=== PATIENT | male | born 1960 | race Caucasian/White ===

== ENCOUNTER 2017-07-01 16:11 | Inpatient (IN) | payer MEDICAID, SELFPAY ==
[2017-07-01 15:42] VITALS: BMI 43.9
[2017-07-01 16:02] VITALS: PULSE 90
[2017-07-01 16:08] VITALS: BP 126/74; PULSE 76; RESP 18; TEMP 36.6; O2SAT 96
--- NOTE | 2017-07-01 16:12 | MRI_ITS ---
MR Brain W/O Contrast INDICATION: Right sided weakness, near syncope COMPARISON: None TECHNIQUE: Multiplanar multisequence MRI examination of the brain without contrast FINDINGS: There is focal cortical restricted diffusion in the left posterior lateral parietal region and left parasagittal high convexity compatible with small areas of acute infarction. Underlying periventricular chronic ischemic microvascular white matter changes are minimal. There is no evidence of associated hemorrhage, or mass effect. There is no evidence of abnormal extra-axial collection or midline shift. The ventricular system is normal in size and symmetric. Midline structures and craniocervical junction are unremarkable. Mesial temporal lobes are normal and symmetric. Flow-voids of the [place] vascularity are well seen. There is partial opacification of the paranasal sinuses. Mastoid air cells are clear. MRI/Brain without Contrast IMPRESSION: Tiny foci of acute infarction in the left posterior parietal and left high convexity cortex. No evidence of associated hemorrhage or mass effect. Underlying chronic ischemic microvascular white matter changes are minimal. Paranasal sinus disease. at 2013 Reported and signed by: Helen Kendall MD N.B. : The above information has been verbally conveyed by Helen Kendall MD [facility] on 07/01/2017 20:20:40 (ET). Electronically Signed: Helen Kendall MD at 20:12 EDT Tel , Service support , N.B. : The above information has been verbally conveyed by Helen Kendall MD to BEVERLY EL on 07/01/2017 20:20:40 (ET).
--- NOTE | 2017-07-01 16:12 | CDU_ITS ---
Reason For Study: TIA Rt. Velocities/BP Lt. Velocities/BP Prox CCA 83/18 cm/sec. Prox CCA 124/26 cm/sec. Mid CCA 85/16 cm/sec. Mid CCA 124/32 cm/sec. Dist CCA 92/23 cm/sec. Dist CCA 120/31 cm/sec. Prox ICA 110/31 cm/sec. Prox ICA 68/26 cm/sec. Mid ICA 74/26 cm/sec. Mid ICA 84/34 cm/sec. Dist ICA 77/30 cm/sec. Dist ICA 83/36 cm/sec. Rt. ICA/CCA = 1.29. Lt. ICA/CCA = 0.67. Prox ECA 131/17 cm/sec. Prox ECA 118/22 cm/sec. Rt. Vert. 44/12 cm/sec. Lt. Vert. 48/11 cm/sec. Right Extracranial There is heterogeneous, irregular atherosclerotic plaque noted in the right common carotid artery. There is intimal thickening but no significant atherosclerotic plaque noted in the right internal carotid artery. There is intimal thickening but no significant atherosclerotic plaque noted in the right external carotid artery. Antegrade flow is noted in the right vertebral artery. Left Extracranial There is homogeneous, smooth atherosclerotic plaque noted in the left common carotid artery. There is intimal thickening but no significant atherosclerotic plaque noted in the left internal carotid artery. There is no significant atherosclerotic plaque noted in the left external carotid artery. Antegrade flow is noted in the left vertebral artery. Procedure Carotid Duplex [id number]. Exam performed portable in patient room. Interpretation Summary No hemodynamically significant plague or stenosis bilateral extracranial internal carotids with <50% stenosis bilaterally. Normal flow bilateral external carotids. Patent and antegrade vertebrals bilaterally. Ordering Physician: Ky Hill Referring Physician: Ky Hill Performed By: Kimberly Lewis, JENN, RVT
--- NOTE | 2017-07-01 16:17 | ECHOCS_ITS ---
Reason For Study: TIA/STROKE Procedure This was a 2D Doppler, Color Flow transthoracic echocardiogram. Exam performed portable in patient room. Left Ventricle Normal size and thickness. The estimated ejection fraction is 65 %. Normal diastology for age. No regional wall motion abnormalities noted. Right Ventricle Normal size and thickness. Normal systolic function. Atria The left atrium is mildly enlarged. Normal right atrium. Normal atrial septum. Bubble contrast study negative for right to left interatrial shunt. Mitral Valve The mitral valve is structurally normal. No prolapse or stenosis seen. Tricuspid Valve Normal tricuspid valve. Trivial tricuspid valve insufficiency. Right ventricular systolic pressure estimated to be 31 mmHg. Aortic Valve Trisinus/trileaflet aortic valve. Normal aortic valve. Pulmonic Valve Normal pulmonic valve. Great Vessels Normal aortic root. Normal arch. Normal inferior vena cava. Inferior vena cava collapse with sniff. Pericardium/Pleural No pericardial effusion. Medication Diluted definity 2ml given slow IV push to enhance endocardial definition. Performed a rapid injection of agitated mix of 9 cc saline and 1cc air to assess for atrial septal defect. MMode/2D Measurements & Calculations LVIDd: 3.5 cm IVSd: 0.97 cm Ao root diam: 3.2 cm LVIDs: 2.5 cm LVPWd: 1.1 cm FS: 28.1 % LAV(MOD-bp): 60.7 ml LA A4 area: 21.4 cm2 RA A4 area: 17.1 cm2 LAV(MOD-bp) Indexed: 24.3 ml/m2 LAV(MOD-sp2): 58.2 ml LAV(MOD-sp4): 59.8 ml Time Measurements MV dec time: 0.20 sec Doppler Measurements & Calculations MV A max elfego: 78.0 cm/sec Lat Peak E' Elfego: 12.3 cm/sec Med Peak E' Elfego: 15.1 cm/sec Ao V2 max: 96.9 cm/sec LV V1 max: 76.2 cm/sec PA V2 max: 107.7 cm/sec Ao max P.8 mmHg LV V1 max P.3 mmHg TR max elfego: 255.3 cm/sec TR max P.1 mmHg Interpretation Summary The estimated ejection fraction is 65 %. Normal diastology for age. The left atrium is mildly enlarged. Bubble contrast study negative for right to left interatrial shunt. Trivial tricuspid valve insufficiency. Right ventricular systolic pressure estimated to be 31 mmHg. The study was technically difficult. There is no comparison study available. Contrast injection was performed. Ordering Physician: Ky Hill Referring Physician: Ky Hill Performed By: Stephanie Doherty RDCS
--- NOTE | 2017-07-01 16:18 | PCM.HP.STD ---
Problem List (1) Asthma Status: Chronic (2) Essential hypertension Status: Chronic History of Present Illness Date of Admission: 07/01/17 Chief Complaint: Syncope, right upper extremity numbness and slurred speech The patient is a 57 year old man with past medical history of essential hypertension and controlled bronchial asthma who presented to the emergency room at [place] complaining of a syncopal episode as well as right upper extremity paresthesias and slurred speech. Yesterday he had an episode where he almost passed out and at the same time he experienced numbness and tingling of the right upper extremity, he also had slurred speech. His symptoms resolved and he did not seek any medical attention. Today he was standing up and reaching out to get a pen when his right upper extremity became numb and weak with tingling , he completely passed out. His significant other who is at bedside reported that the patient was out for a few seconds but regained consciousness immediately. At the outlying emergency room , a non contrast CT scan of the brain did not reveal any acute process, he was transferred here for further management.When I saw him on the floor , he was alert and oriented to time place and person , he did not appear to be in any distress. He denied any focal deficit. Past Medical History Past Medical History (Chronic Problems): Chronic Problems Asthma (Chronic) Essential hypertension (Chronic) Allergies Iodinated Contrast- Oral and IV Dye [CONTRASTS] Adverse Reaction (Verified 07/01/17 15:53) Other Home Medications: Ambulatory Orders Medication Instructions Recorded Hydrochlorothiazide [Hctz] 25 mg PO DAILY 07/01/17 Meloxicam 15 mg PO DAILY PRN 07/01/17 Mometasone/Formoterol [Dulera 200 13 gm IH DAILY 07/01/17 Mcg/5 Mcg Inhaler] Smoking Status: Former smoker Tobacco Use: Cigarettes - *Family History Maternal History Items: No pertinent history Review of Systems Comment: All Systems were reviewed with pertinent positives mentioned in the HPI above. VTE Information - Inpt Only VTE Present on Admission: Yes VTE Mechan Device Prophylaxis: SCD's VTE Pharm Prophylaxis ordered?: No - Physical Exam General: Alert, Oriented x3 HEENT: Atraumatic Oral: Moist Mucosa Neck: Supple Lungs: Clear to auscultation Cardiovascular: Regular rate, Normal S1, Normal S2 Abdomen: Bowel Sounds Present, Soft Extremities: No clubbing Neurological: Cranial nerves II-XII grossly intact, Deep Tendon Reflexes 2+/4 and Symmetrical, Neuro grossly intact, Motor Exam 5/5 strength throughout Psych/Mental Status: Normal Affect Vital Signs Temp Pulse Resp BP Pulse Ox 97.9 F 76 18 126/74 H 96 07/01/17 16:08 07/01/17 16:08 07/01/17 16:08 07/01/17 16:08 07/01/17 16:08 Oxygen Delivery Method Room Air Weight: 139 kg Body Mass Index (BMI) 43.9 Assessment/Plan 1. Transient ischemic attack; will obtain MRI of the brain, carotid Doppler ultrasound echocardiogram and continue cardiac rhythm monitoring. 2. Status post syncope; obtain serial cardiac enzymes, will obtain echocardiogram to rule out structural heart disease. 3. Essential hypertension; this is controlled. 4. history of Bronchial asthma with no acute exacerbation; continue home medications as they are. 5. Obesity; weight loss recommended. 6. DVT Prophylaxis with Lovenox. Code Visit OBSV E&M: 06093 Initial observation care L3
[2017-07-01 17:21] VITALS: BMI 43.9
[2017-07-01 18:22] LABS: Thyroid Stim Hormone (TSH) 1.11 uIU/mL (0.358-3.74)
[2017-07-01 19:53] VITALS: PULSE 85
[2017-07-01 19:59] VITALS: BP 115/73; PULSE 82; RESP 16; TEMP 36.9; O2SAT 96
[2017-07-01 23:33] VITALS: PULSE 71
[2017-07-02] VITALS (15 sets, daily range): BP systolic 102–142; BP diastolic 61–87; PULSE 67–93; RESP 16–18; TEMP 36.4–37.1; O2SAT 95–98; BMI 43.9
[2017-07-02 06:36] LABS: Hematocrit 41.4 % (40-54); Hemoglobin 13.5 g/dl (13.0-16.5); Mean Corp Hgb Conc 32.6 g/gl (32-36); Mean Corpuscular Hgb 29.9 pg (27.0-32.0); Mean Corpuscular Volume 91.6 fL (80-94); Platelet Count 322 K/mm3 (150-450); RBC Distribution Width CV 13.6 % (11.6-14.6); RBC Distribution Width SD 44.8 fl (35.1-43.9); Red Blood Count 4.52 M/mm3 (4.6-6.2); White Blood Count 9.9 K/mm3 (4.4-11.0)
[2017-07-02 06:41] LABS: Scan Indicated on CBC? Y/N NO
[2017-07-02 06:59] LABS: Anion Gap 7 (5-15); BUN 13 mg/dL (7-18); BUN/Creat Ratio 12.4 RATIO (10-20); Calcium,Total 8.2 mg/dL (8.5-10.1); Chloride 107 mmol/L (98-107); Cholesterol 165 mg/dL (200); Creatinine, Serum 1.05 mg/dL (0.70-1.30); EST Glomerular Filtration Rate 78 mL/min (>60); Est Glom Filt Rate - Afr Amer 94 mL/min (>60); Estimated Creatinine Clearance 82.08 ml/min; Glucose 91 mg/dL (74-106); High Density Lipoprotein 34 mg/dL; Potassium 4.3 mmol/L (3.5-5.1); Sodium Level 141 mmol/L (136-145); Triglycerides 173 mg/dL; Very Low Density Lipoprotein 35 mg/dL (5-40)
[2017-07-02] MEDS: Enoxaparin 40 MG/0.4 ML Syringe SC (10:27)
[2017-07-02] MEDS: Atorvastatin Calcium 80 MG Tablet PO (10:28)
[2017-07-02] MEDS: Aspirin 81 MG TAB.CHEW PO (10:28)
--- NOTE | 2017-07-02 10:35 | CASEMGMT ---
SW spoke with patient and his . Introduced self as well as role at [facility]. Patient is self pay. 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 He was injured at work and is currently on Worker's Comp for his injury. He gets $1234.16 twice a month. They cannot afford insurance through the marketplace. He is able to see his Primary Care Dr. He is on a few medications, two of which are inhalers which are expensive. SW told them SW will look for some resources for him. [facility] did find prescription assistance programs for the inhalers that patient will likely qualify for. Patient will likely not qualify for Medicaid, but SW will give him an application. SW gave patient application for assistance with his meds, Medicaid application, and [facility] HCAP form as well as Patient Financial Services phone number regarding payment plan. Elvira MURPHY MSW
--- NOTE | 2017-07-02 12:07 | CASEMGMT ---
CHART REVIEW ADM DX: CVA/TIA MRI IMPRESSION: TINY FOCI OF ACUTE INFARCTION IN THE LEFT POSTERIOR PARIETAL AND LEFT HIGH CONVEXITY CORTEX. ASSESSMENT: Per physician report, the patient is a 57 year old man with past medical history of essential hypertension and controlled bronchial asthma who presented to the emergency room at [place] complaining of a syncopal episode as well as right upper extremity paresthesias and slurred speech. Yesterday he had an episode where he almost passed out and at the same time he experienced numbness and tingling of the right upper extremity, he also had slurred speech. His symptoms resolved and he did not seek any medical attention. Today he was standing up and reaching out to get a pen when his right upper extremity became numb and weak with tingling , he completely passed out. His significant other who is at bedside reported that the patient was out for a few seconds but regained consciousness immediately. At the outlying emergency room , a non contrast CT scan of the brain did not reveal any acute process, he was transferred here for further management. TREATMENT PLAN: MRI, Carotid doppler, ECHO, NIH and neuro checks q 4 hours, and continued cardiac monitoring. TRANSITION CARE/PLANNING: Pt with no deficits at this time. Pt is currently on workers comp for injury sustained in 11/2016. Pt is independent at home and lives with . Pt does not live around here and does have a PCP near his home. Pt states does not currently have medical insurance. Pt already seen by Maureen BRIDGES for self-pay status and she is working on prescription assistance with pt. CM to follow for any further discharge planning/needs. PLAN: [place]
--- NOTE | 2017-07-02 13:57 | PCM.CONS.GEN ---
Reason for Consult Date of Consultation: 07/02/17 Reason for Consultation: Right sided paresthesias History of Present Illness: The patient is a 57 year old white male who experienced an episode of right hand paresthesias that went away. Subsequently yesterday he had an episode of right-sided weakness and paresthesias associated with loss of consciousness. He was brought to the emergency department and he is significantly improved but he notes still some subtle abnormalities on his right side. No other complaints. No recent illnesses. He is healthy otherwise. His reports he is a light snore. 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 He had a remote sleep study about 20 years ago which was negative. He does not take aspirin every day. Past Medical History Past Medical History (Chronic Problems): Chronic Problems Asthma (Chronic) Essential hypertension (Chronic) Allergies Iodinated Contrast- Oral and IV Dye [CONTRASTS] Adverse Reaction (Verified 07/01/17 15:53) Other Home Medications: Ambulatory Orders Medication Instructions Recorded Hydrochlorothiazide [Hctz] 25 mg PO DAILY 07/01/17 Meloxicam 15 mg PO DAILY PRN 07/01/17 Mometasone/Formoterol [Dulera 200 13 gm IH DAILY 07/01/17 Mcg/5 Mcg Inhaler] Lives: Spouse/ Significant Other Smoking Status: Former smoker Tobacco Use: Cigarettes - *Family History Maternal History Items: No pertinent history Review of Systems Constitutional: Denies: Chills, Fever, Weight Change HEENT: Denies: Head Aches, Sinus Congestion, Sinus Drainage Cardiovascular: Denies: Chest Pain, Palpitations Respiratory: Denies: Cough, Shortness of breath at rest, Sputum production Gastrointestinal: Denies: Abdominal Pain, Nausea, Vomiting Genitourinary: Denies: Dysuria Musculoskeletal: Denies: Joint Pain, Joint Tenderness Skin: Denies: Rash, Wounds Neurological: Denies: Numbness, Tingling, Focal weakness Psychiatric: Denies: Anxiety, Depression, Homicidal Ideations, Suicidal Ideations Hematologic/ Lymphatic: Denies: Easy Bruising, Easy Bleeding - Physical Exam General: Alert, Oriented x3, Cooperative HEENT: Atraumatic, PERRLA, EOMI, Normocephalic Neck: Supple, No JVD, Negative Carotid Bruits Lungs: Clear to auscultation, Normal air movement Cardiovascular: Regular rate, No murmurs Abdomen: Bowel Sounds Present, Soft, Non Tender Extremities: No edema, Capillary Refill Less than 3 Seconds Skin: No rashes, No breakdown Musculoskeletal: No Tenderness to Palpation of Joints or Extremities Neurological: Cranial nerves II-XII grossly intact Psych/Mental Status: Normal Affect, Appropriate Vital Signs Temp Pulse Resp BP Pulse Ox 36.6 C 89 18 127/78 H 97 07/02/17 12:00 07/02/17 12:05 07/02/17 12:00 07/02/17 12:00 07/02/17 12:00 Oxygen Delivery Method Room Air Weight: 139 kg Body Mass Index (BMI) 43.9 Intake and Output for Last 24 Hours 06/30/17 07/01/17 07/02/17 23:59 23:59 23:59 Intake Total 240 / 240 480 / 480 Balance 240 / 240 480 / 480 Laboratory Tests Past 24 Hrs 07/01/17 07/02/17 07/02/17 17:05 06:05 06:05 WBC 9.9 RBC 4.52 L Hgb 13.5 Hct 41.4 MCV 91.6 MCH 29.9 MCHC 32.6 RDW 13.6 RDW Differential 44.8 H Plt Count 322 MPV 9.0 Sodium 141 Potassium 4.3 Chloride 107 Carbon Dioxide 27.0 Anion Gap 7 BUN 13 Creatinine 1.05 Estim Creat Clear Calc 82.08 Est GFR (MDRD) Af Amer 94 Est GFR (MDRD) Non-Af 78 BUN/Creatinine Ratio 12.4 Glucose 91 Calcium 8.2 L Troponin I < 0.02 Triglycerides 173 Cholesterol 165 LDL Cholesterol 96 VLDL Cholesterol 35 HDL Cholesterol 34 L TSH 1.11 MRI reviewed. 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 These are therefore by definition cardioembolic. Assessment/Plan Acute small infarcts presumably cardioembolic based on vascular distribution. Await echocardiogram PT OT and speech therapy Aspirin therapy Statin therapy Consider outpatient sleep study Carotid ultrasound
--- NOTE | 2017-07-02 14:02 | CON.PCM_ITS ---
Reason for Consult Date of Consultation: 07/02/17 Reason for Consultation: Right sided paresthesias History of Present Illness: The patient is a 57 year old white male who experienced an episode of right hand paresthesias that went away. Subsequently yesterday he had an episode of right-sided weakness and paresthesias associated with loss of consciousness. He was brought to the emergency department and he is significantly improved but he notes still some subtle abnormalities on his right side. No other complaints. No recent illnesses. He is healthy otherwise. His reports he is a light snore. 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 He had a remote sleep study about 20 years ago which was negative. He does not take aspirin every day. Past Medical History Past Medical History (Chronic Problems): Chronic Problems Asthma (Chronic) Essential hypertension (Chronic) Allergies Iodinated Contrast- Oral and IV Dye [CONTRASTS] Adverse Reaction (Verified 07/01 15:53) Other Home Medications: Ambulatory Orders Medication Instructions Recorded Hydrochlorothiazide [Hctz] 25 mg PO DAILY 07/01/17 Meloxicam 15 mg PO DAILY PRN 07/01/17 Mometasone/Formoterol [Dulera 200 13 gm IH DAILY 07/01/17 Mcg/5 Mcg Inhaler] Lives: Spouse/ Significant Other Smoking Status: Former smoker Tobacco Use: Cigarettes - *Family History Maternal History Items: No pertinent history Review of Systems Constitutional: Denies: Chills, Fever, Weight Change HEENT: Denies: Head Aches, Sinus Congestion, Sinus Drainage Cardiovascular: Denies: Chest Pain, Palpitations Respiratory: Denies: Cough, Shortness of breath at rest, Sputum production Gastrointestinal: Denies: Abdominal Pain, Nausea, Vomiting Genitourinary: Denies: Dysuria Musculoskeletal: Denies: Joint Pain, Joint Tenderness Skin: Denies: Rash, Wounds Neurological: Denies: Numbness, Tingling, Focal weakness Psychiatric: Denies: Anxiety, Depression, Homicidal Ideations, Suicidal Ideations Hematologic/ Lymphatic: Denies: Easy Bruising, Easy Bleeding - Physical Exam General: Alert, Oriented x3, Cooperative HEENT: Atraumatic, PERRLA, EOMI, Normocephalic Neck: Supple, No JVD, Negative Carotid Bruits Lungs: Clear to auscultation, Normal air movement Cardiovascular: Regular rate, No murmurs Abdomen: Bowel Sounds Present, Soft, Non Tender Extremities: No edema, Capillary Refill Less than 3 Seconds Skin: No rashes, No breakdown Musculoskeletal: No Tenderness to Palpation of Joints or Extremities Neurological: Cranial nerves II-XII grossly intact Psych/Mental Status: Normal Affect, Appropriate Vital Signs Temp Pulse Resp BP Pulse Ox 36.6 C 89 18 127/78 H 97 07/02/17 12:00 07/02/17 12:05 07/02/17 12:00 07/02/17 12:00 07/02/17 12:00 Oxygen Delivery Method Room Air Weight: 139 kg Body Mass Index (BMI) 43.9 Intake and Output for Last 24 Hours 06/30/17 07/01/17 07/02/17 23:59 23:59 23:59 Intake Total 240 / 240 480 / 480 Balance 240 / 240 480 / 480 Laboratory Tests Past 24 Hrs 07/01/17 07/02/17 07/02/17 17:05 06:05 06:05 WBC 9.9 RBC 4.52 L Hgb 13.5 Hct 41.4 MCV 91.6 MCH 29.9 MCHC 32.6 RDW 13.6 RDW Differential 44.8 H Plt Count 322 MPV 9.0 Sodium 141 Potassium 4.3 Chloride 107 Carbon Dioxide 27.0 Anion Gap 7 BUN 13 Creatinine 1.05 Estim Creat Clear Calc 82.08 Est GFR (MDRD) Af Amer 94 Est GFR (MDRD) Non-Af 78 BUN/Creatinine Ratio 12.4 Glucose 91 Calcium 8.2 L Troponin I < 0.02 Triglycerides 173 Cholesterol 165 LDL Cholesterol 96 VLDL Cholesterol 35 HDL Cholesterol 34 L TSH 1.11 MRI reviewed. 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 These are therefore by definition cardioembolic. Assessment/Plan Acute small infarcts presumably cardioembolic based on vascular distribution. Await echocardiogram PT OT and speech therapy Aspirin therapy Statin therapy Consider outpatient sleep study Carotid ultrasound
--- NOTE | 2017-07-02 15:12 | PCM.PROGNOTE ---
<Dafne Gamble - Last Filed: 07/02/17 15:23> Subjective: Patient seen and examined. States right arm has very minimal sensory loss. Denies unilateral weakness. Denies vision changes, headache or other neurologic complaints. - Physical Exam General: Alert, Oriented x3, Cooperative HEENT: Atraumatic, PERRLA, EOMI, Normocephalic Neck: Supple, No JVD, Negative Carotid Bruits Lungs: Clear to auscultation, Normal air movement Cardiovascular: Regular rate, Regular Rhythm, Normal S1, Normal S2, No murmurs Abdomen: Bowel Sounds Present, Soft, Non Tender, Non-Distended, Obese Extremities: No clubbing, No cyanosis, No edema, Capillary Refill Less than 3 Seconds Skin: No rashes, No breakdown Musculoskeletal: No Tenderness to Palpation of Joints or Extremities Neurological: Cranial nerves II-XII grossly intact, Neuro grossly intact Psych/Mental Status: Normal Affect, Appropriate Vital Signs Temp Pulse Resp BP Pulse Ox 97.8 F 89 18 127/78 H 97 07/02/17 12:00 07/02/17 12:05 07/02/17 12:00 07/02/17 12:00 07/02/17 12:00 Oxygen Delivery Method Room Air Weight: 139 kg Body Mass Index (BMI) 43.9 Intake and Output for Last 24 Hours 06/30/17 07/01/17 07/02/17 23:59 23:59 23:59 Intake Total 240 / 240 480 / 480 Balance 240 / 240 480 / 480 Laboratory Tests Past 24 Hrs 07/01/17 07/02/17 07/02/17 17:05 06:05 06:05 WBC 9.9 RBC 4.52 L Hgb 13.5 Hct 41.4 MCV 91.6 MCH 29.9 MCHC 32.6 RDW 13.6 RDW Differential 44.8 H Plt Count 322 MPV 9.0 Sodium 141 Potassium 4.3 Chloride 107 Carbon Dioxide 27.0 Anion Gap 7 BUN 13 Creatinine 1.05 Estim Creat Clear Calc 82.08 Est GFR (MDRD) Af Amer 94 Est GFR (MDRD) Non-Af 78 BUN/Creatinine Ratio 12.4 Glucose 91 Calcium 8.2 L Troponin I < 0.02 Triglycerides 173 Cholesterol 165 LDL Cholesterol 96 VLDL Cholesterol 35 HDL Cholesterol 34 L TSH 1.11 Medical Necessity - Tobacco Use Smoking Status: Former smoker Tobacco Use: Cigarettes Assessment/Plan 1. 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 No evidence of hemorrhage or mass. Neurology consulted. Echocardiogram shows an EF of 65%. Bubble contrast study negative for right to left intra-atrial shunt. Trivial tricuspid valve insufficiency. RVSP estimated to be 31 mmHg. Carotid Doppler ultrasound pending. Neurology recommending ANNIKA. Continue aspirin, statin. Monitor telemetry. PT/OT/ST. check hemoglobin A1c. 2. Syncope-troponin negative. Echocardiogram as noted above. Obtain orthostatic vitals. 3. Hypertension-stable. Continue home hydrochlorothiazide regimen. Patient states he was previously on lisinopril 5 mg daily as well which he quit taking by choice approximately 3 months ago. 4. Asthma-no acute exacerbation. Continue home regimen. 5. Obesity-encourage diet and lifestyle modifications. 6. History of tobacco use-states he quit many years ago. Encouraged continued cessation. DVT prophylaxis-Lovenox subcu. This patient was seen by VIRGINIE Meraz under the supervision of Dr. Moore. <Rey Moore E - Last Filed: 07/02/17 15:40> - Physical Exam Vital Signs Temp Pulse Resp BP Pulse Ox 97.8 F 89 18 127/78 H 97 07/02/17 12:00 07/02/17 12:05 07/02/17 12:00 07/02/17 12:00 07/02/17 12:00 Oxygen Delivery Method Room Air Weight: 306 lb 7.08 oz Body Mass Index (BMI) 43.9 Intake and Output for Last 24 Hours 06/30/17 07/01/17 07/02/17 23:59 23:59 23:59 Intake Total 240 / 240 480 / 480 Balance 240 / 240 480 / 480 Laboratory Tests Past 24 Hrs 07/01/17 07/02/17 07/02/17 17:05 06:05 06:05 WBC 9.9 RBC 4.52 L Hgb 13.5 Hct 41.4 MCV 91.6 MCH 29.9 MCHC 32.6 RDW 13.6 RDW Differential 44.8 H Plt Count 322 MPV 9.0 Sodium 141 Potassium 4.3 Chloride 107 Carbon Dioxide 27.0 Anion Gap 7 BUN 13 Creatinine 1.05 Estim Creat Clear Calc 82.08 Est GFR (MDRD) Af Amer 94 Est GFR (MDRD) Non-Af 78 BUN/Creatinine Ratio 12.4 Glucose 91 Hemoglobin A1c Calcium 8.2 L Troponin I < 0.02 Triglycerides 173 Cholesterol 165 LDL Cholesterol 96 VLDL Cholesterol 35 HDL Cholesterol 34 L TSH 1.11 07/02/17 06:05 WBC RBC Hgb Hct MCV MCH MCHC RDW RDW Differential Plt Count MPV Sodium Potassium Chloride Carbon Dioxide Anion Gap BUN Creatinine Estim Creat Clear Calc Est GFR (MDRD) Af Amer Est GFR (MDRD) Non-Af BUN/Creatinine Ratio Glucose Hemoglobin A1c Pending Calcium Troponin I Triglycerides Cholesterol LDL Cholesterol VLDL Cholesterol HDL Cholesterol TSH Assessment/Plan Hospitalist note: I am seeing this patient in conjunction with Dafne Gamble. I independently seen and examined the patient. Progress note above, laboratory data and imaging studies reviewed and I agree with above treatment plan. Patient was admitted for syncope, right upper extremity numbness and speech difficulty. Today, patient seen and examined. He denies any more dizziness or lightheadedness and no more syncopal episodes since admission. No chest pain or shortness of breath. He did mention that one day before admission, he had numbness of the right upper extremity. His vital signs are stable. - Physical Exam General: Alert, Oriented x3, Cooperative, No apparent distress. HEENT: Atraumatic, PERRLA, EOMI. Neck: Supple, No JVD, Negative Carotid Bruits, Trachea Midline, Thyroid Normal. Lungs: Clear to auscultation, Normal air movement, No rhonchi, No wheeze, No rales. Cardiovascular: Regular rate, Regular Rhythm, Normal S1, Normal S2, PMI Normal. Abdomen: Bowel Sounds Present, Soft, Non Tender, Non-Distended, No Hepato-splenomegaly. Extremities: No clubbing, No cyanosis, No edema Skin: No rashes, No breakdown Neurological: Neuro grossly intact Vital Signs are stable. Assessment and plan: #1 acute 2 small infarcts, one is on the left MCA distribution and another left INSPECTOR BOILER distribution, suspected cardioembolic. Patient's vital signs are stable. He has no focal deficit. He is on aspirin and statins. Blood pressure under control. 2D echocardiogram revealed normal ejection fraction, negative bubble contrast study for right to left shunt, RVSP of 31. Neurology consulted, recommended ANNIKA. Plan for cardiology consult for ANNIKA. #2 syncope: Could be due to the stroke. Troponin is negative. EKG without acute ischemic changes. Will check orthostatic vitals. #3 other chronic medical problems: Stable, continue home medications as above. This note was generated with [email or web address] software. It may contain incorrect words, spelling, and punctuation that were not noted in checking the note before signing. Code Visit Inpatient E&M: 38642 Subs Hosp L2
--- NOTE | 2017-07-02 15:21 | PN_ITS ---
<Dafne Gamble - Last Filed: 07/02/17 15:23> Subjective: Patient seen and examined. States right arm has very minimal sensory loss. Denies unilateral weakness. Denies vision changes, headache or other neurologic complaints. - Physical Exam General: Alert, Oriented x3, Cooperative HEENT: Atraumatic, PERRLA, EOMI, Normocephalic Neck: Supple, No JVD, Negative Carotid Bruits Lungs: Clear to auscultation, Normal air movement Cardiovascular: Regular rate, Regular Rhythm, Normal S1, Normal S2, No murmurs Abdomen: Bowel Sounds Present, Soft, Non Tender, Non-Distended, Obese Extremities: No clubbing, No cyanosis, No edema, Capillary Refill Less than 3 Seconds Skin: No rashes, No breakdown Musculoskeletal: No Tenderness to Palpation of Joints or Extremities Neurological: Cranial nerves II-XII grossly intact, Neuro grossly intact Psych/Mental Status: Normal Affect, Appropriate Vital Signs Temp Pulse Resp BP Pulse Ox 97.8 F 89 18 127/78 H 97 07/02/17 12:00 07/02/17 12:05 07/02/17 12:00 07/02/17 12:00 07/02/17 12:00 Oxygen Delivery Method Room Air Weight: 139 kg Body Mass Index (BMI) 43.9 Intake and Output for Last 24 Hours 06/30/17 07/01/17 07/02/17 23:59 23:59 23:59 Intake Total 240 / 240 480 / 480 Balance 240 / 240 480 / 480 Laboratory Tests Past 24 Hrs 07/01/17 07/02/17 07/02/17 17:05 06:05 06:05 WBC 9.9 RBC 4.52 L Hgb 13.5 Hct 41.4 MCV 91.6 MCH 29.9 MCHC 32.6 RDW 13.6 RDW Differential 44.8 H Plt Count 322 MPV 9.0 Sodium 141 Potassium 4.3 Chloride 107 Carbon Dioxide 27.0 Anion Gap 7 BUN 13 Creatinine 1.05 Estim Creat Clear Calc 82.08 Est GFR (MDRD) Af Amer 94 Est GFR (MDRD) Non-Af 78 BUN/Creatinine Ratio 12.4 Glucose 91 Calcium 8.2 L Troponin I < 0.02 Triglycerides 173 Cholesterol 165 LDL Cholesterol 96 VLDL Cholesterol 35 HDL Cholesterol 34 L TSH 1.11 Medical Necessity - Tobacco Use Smoking Status: Former smoker Tobacco Use: Cigarettes Assessment/Plan 1. 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 No evidence of hemorrhage or mass. Neurology consulted. Echocardiogram shows an EF of 65%. Bubble contrast study negative for right to left intra-atrial shunt. Trivial tricuspid valve insufficiency. RVSP estimated to be 31 mmHg. Carotid Doppler ultrasound pending. Neurology recommending ANNIKA. Continue aspirin, statin. Monitor telemetry. PT/OT/ST. check hemoglobin A1c. 2. Syncope-troponin negative. Echocardiogram as noted above. Obtain orthostatic vitals. 3. Hypertension-stable. Continue home hydrochlorothiazide regimen. Patient states he was previously on lisinopril 5 mg daily as well which he quit taking by choice approximately 3 months ago. 4. Asthma-no acute exacerbation. Continue home regimen. 5. Obesity-encourage diet and lifestyle modifications. 6. History of tobacco use-states he quit many years ago. Encouraged continued cessation. DVT prophylaxis-Lovenox subcu. This patient was seen by VIRGINIE Meraz under the supervision of Dr. Moore. <Rey Moore E - Last Filed: 07/02/17 15:40> - Physical Exam Vital Signs Temp Pulse Resp BP Pulse Ox 97.8 F 89 18 127/78 H 97 07/02/17 12:00 07/02/17 12:05 07/02/17 12:00 07/02/17 12:00 07/02/17 12:00 Oxygen Delivery Method Room Air Weight: 306 lb 7.08 oz Body Mass Index (BMI) 43.9 Intake and Output for Last 24 Hours 06/30/17 07/01/17 07/02/17 23:59 23:59 23:59 Intake Total 240 / 240 480 / 480 Balance 240 / 240 480 / 480 Laboratory Tests Past 24 Hrs 07/01/17 07/02/17 07/02/17 17:05 06:05 06:05 WBC 9.9 RBC 4.52 L Hgb 13.5 Hct 41.4 MCV 91.6 MCH 29.9 MCHC 32.6 RDW 13.6 RDW Differential 44.8 H Plt Count 322 MPV 9.0 Sodium 141 Potassium 4.3 Chloride 107 Carbon Dioxide 27.0 Anion Gap 7 BUN 13 Creatinine 1.05 Estim Creat Clear Calc 82.08 Est GFR (MDRD) Af Amer 94 Est GFR (MDRD) Non-Af 78 BUN/Creatinine Ratio 12.4 Glucose 91 Hemoglobin A1c Calcium 8.2 L Troponin I < 0.02 Triglycerides 173 Cholesterol 165 LDL Cholesterol 96 VLDL Cholesterol 35 HDL Cholesterol 34 L TSH 1.11 07/02/17 06:05 WBC RBC Hgb Hct MCV MCH MCHC RDW RDW Differential Plt Count MPV Sodium Potassium Chloride Carbon Dioxide Anion Gap BUN Creatinine Estim Creat Clear Calc Est GFR (MDRD) Af Amer Est GFR (MDRD) Non-Af BUN/Creatinine Ratio Glucose Hemoglobin A1c Pending Calcium Troponin I Triglycerides Cholesterol LDL Cholesterol VLDL Cholesterol HDL Cholesterol TSH Assessment/Plan Hospitalist note: I am seeing this patient in conjunction with Dafne Gamble. I independently seen and examined the patient. Progress note above, laboratory data and imaging studies reviewed and I agree with above treatment plan. Patient was admitted for syncope, right upper extremity numbness and speech difficulty. Today, patient seen and examined. He denies any more dizziness or lightheadedness and no more syncopal episodes since admission. No chest pain or shortness of breath. He did mention that one day before admission, he had numbness of the right upper extremity. His vital signs are stable. - Physical Exam General: Alert, Oriented x3, Cooperative, No apparent distress. HEENT: Atraumatic, PERRLA, EOMI. Neck: Supple, No JVD, Negative Carotid Bruits, Trachea Midline, Thyroid Normal. Lungs: Clear to auscultation, Normal air movement, No rhonchi, No wheeze, No rales. Cardiovascular: Regular rate, Regular Rhythm, Normal S1, Normal S2, PMI Normal. Abdomen: Bowel Sounds Present, Soft, Non Tender, Non-Distended, No Hepato- splenomegaly. Extremities: No clubbing, No cyanosis, No edema Skin: No rashes, No breakdown Neurological: Neuro grossly intact Vital Signs are stable. Assessment and plan: #1 acute 2 small infarcts, one is on the left MCA distribution and another left GUARDIAN AD LITEM distribution, suspected cardioembolic. Patient's vital signs are stable. He has no focal deficit. He is on aspirin and statins. Blood pressure under control. 2D echocardiogram revealed normal ejection fraction, negative bubble contrast study for right to left shunt, RVSP of 31. Neurology consulted, recommended ANNIKA. Plan for cardiology consult for ANNIKA. #2 syncope: Could be due to the stroke. Troponin is negative. EKG without acute ischemic changes. Will check orthostatic vitals. #3 other chronic medical problems: Stable, continue home medications as above. This note was generated with [employer] software. It may contain incorrect words, spelling, and punctuation that were not noted in checking the note before signing. Code Visit Inpatient E&M: 53926 Subs Hosp L2
[2017-07-02 16:07] LABS: Hemoglobin A1c 5.8 % (4.2-6.3)
[2017-07-02] MEDS: Albuterol 2.5 MG/3 ML VIAL.NEB. INHALATION (19:01)
[2017-07-02] MEDS: Budesonide Respules 0.5 MG/2 ML AMPUL.NEB. INHALATION (19:01)
--- NOTE | 2017-07-02 21:57 | NURSING ---
Pt reported feeling weak when returning from bathroom. States weakness is all over and came out of nowhere. BP: 135/74, HR 80 O2: 94% on room air, TEMP 97.8, RR 18. BG 107. Pt reports weakness is improving. Denies dizziness, shortness of breath. Drift assessed, none noted. Will continue to monitor.
[2017-07-03] VITALS (12 sets, daily range): BP systolic 109–144; BP diastolic 65–91; PULSE 71–91; RESP 16–18; TEMP 36.4–36.8; O2SAT 94–96; BMI 43.9
[2017-07-03 00:06] LABS: Bedside Glucose 107 mg/dL (70-110)
[2017-07-03] MEDS: Enoxaparin 40 MG/0.4 ML Syringe SC (05:16)
--- NOTE | 2017-07-03 05:55 | ECHOTEE_ITS ---
Reason For Study: TIA/CVA Medication ANNIKA probe passed with minimal difficulty. No complications were noted. Cetacaine Topical Arboles given X4 orally. Versed 2 mg given slow IVP. Fentanyl 100 mcg given slow IVP. Performed a rapid injection of agitated mix of 9 cc saline and 1cc air to assess for atrial septal defect. Left Ventricle Normal LV size. Left ventricular systolic function is normal. The estimated ejection fraction is 70 %. No regional wall motion abnormalities noted. Right Ventricle Normal RV size. Normal systolic function. Atria Positive agitated saline contrast study for a right to left interatrial shunt c/w a small PFO. The left atrium is mildly enlarged. There is no sponatenous contrast in the left atrium. No thrombus is detected in the left atrial appendage. Normal right atrium. There is no sponatenous contrast in the right atrium. No obvious RA / appendage thrombus identified. Mitral Valve There is no mitral annular calcification. Normal mitral valve. Mild (1+) mitral valve insufficiency. Tricuspid Valve Normal tricuspid valve. Trivial tricuspid valve insufficiency. Aortic Valve Trisinus/trileaflet aortic valve. Normal aortic valve. Pulmonic Valve The pulmonic valve is not well visualized. Vessels Normal appearing thoracic aorta. Pericardium No pericardial effusion. Interpretation Summary Left ventricular systolic function is normal. The estimated ejection fraction is 70 %. The left atrium is mildly enlarged. There is no sponatenous contrast in the left atrium. No thrombus is detected in the left atrial appendage. Mild (1+) mitral valve insufficiency. Trivial tricuspid valve insufficiency. Positive agitated saline contrast study for a right to left interatrial shunt c/w a small PFO. Ordering Physician: VIRGINIE Meraz Referring Physician: Ky Hill Performed By: Destini Frazier, RDCS, RVT
[2017-07-03 05:58] LABS: Hematocrit 43.7 % (40-54); Hemoglobin 14.9 g/dl (13.0-16.5); Mean Corp Hgb Conc 34.1 g/gl (32-36); Mean Corpuscular Hgb 31.1 pg (27.0-32.0); Mean Corpuscular Volume 91.2 fL (80-94); Platelet Count 343 K/mm3 (150-450); RBC Distribution Width CV 13.7 % (11.6-14.6); Red Blood Count 4.79 M/mm3 (4.6-6.2); White Blood Count 10.2 K/mm3 (4.4-11.0)
[2017-07-03 06:12] LABS: Scan Indicated on CBC? Y/N NO
[2017-07-03 06:18] LABS: Anion Gap 7 (5-15); BUN 15 mg/dL (7-18); BUN/Creat Ratio 12.8 RATIO (10-20); Calcium,Total 8.4 mg/dL (8.5-10.1); Chloride 106 mmol/L (98-107); Creatinine, Serum 1.17 mg/dL (0.70-1.30); EST Glomerular Filtration Rate 69 mL/min (>60); Est Glom Filt Rate - Afr Amer 83 mL/min (>60); Estimated Creatinine Clearance 73.66 ml/min; Glucose 88 mg/dL (74-106); Potassium 4.6 mmol/L (3.5-5.1); Sodium Level 142 mmol/L (136-145)
[2017-07-03] MEDS: Albuterol 2.5 MG/3 ML VIAL.NEB. INHALATION ×2 (07:01→13:24)
[2017-07-03] MEDS: Budesonide Respules 0.5 MG/2 ML AMPUL.NEB. INHALATION (07:01)
--- NOTE | 2017-07-03 10:14 | VDLE_ITS ---
Reason For Study: LEG SWELLING RIGHT GSV is normal. CFV is compressible, spontaneous, phasic, competent and demonstrates normal augmentation. FV is compressible, spontaneous, phasic, competent and demonstrates normal augmentation. POP V is compressible, spontaneous, phasic, competent and demonstrates normal augmentation. T/P Trunk is compressible. PTV is compressible. RT PerV is compressible. Procedure Exam performed portable in patient room. A preliminary report was called and/or faxed to [facility]. Interpretation Summary There is no evidence of right lower extremity deep vein thrombosis. Right greater saphenous vein appears patent and compressible segmentally. Ordering Physician: Eugene Vazquez Referring Physician: Ky Hill Performed By: Yanci Mercado RVT
--- NOTE | 2017-07-03 10:16 | VDUE_ITS ---
Reason For Study: LUE swelling Left Proximal Left jugular vein is spontaneous, widely patent, phasic, with no intraluminal echogenicity noted. Left subclavian vein is spontaneous, widely patent, phasic, with no intraluminal echogenicity noted. Left Arm Left axillary vein is spontaneous, patent, phasic, competent, compressible and demonstrates augmentation. Left brachial vein is compressible. Left cephalic vein is compressible. Left basilic vein is compressible. Left Lower Arm Left radial vein is compressible. Left ulnar vein is compressible. < Interpretation Summary No evidence for acute deep venous thrombosis[left] upper extremity with patent and compressible cephalic and basilic veins. Ordering Physician: Eugene Vazquez Referring Physician: Ky Hill Performed By: Yanci Mercado RVT
--- NOTE | 2017-07-03 11:15 | PCM.PN.NEU ---
- Physical Exam General: Alert, Oriented x3, Cooperative HEENT: Atraumatic, PERRLA, EOMI, Normocephalic Neck: Supple, No JVD, Negative Carotid Bruits Lungs: Clear to auscultation, Normal air movement Cardiovascular: Regular rate, No murmurs Abdomen: Bowel Sounds Present, Soft, Non Tender Extremities: No edema, Capillary Refill Less than 3 Seconds Skin: No rashes, No breakdown Musculoskeletal: No Tenderness to Palpation of Joints or Extremities Neurological: Cranial nerves II-XII grossly intact Psych/Mental Status: Normal Affect, Appropriate Vital Signs Temp Pulse Resp BP Pulse Ox 36.6 C 78 16 112/68 95 07/03/17 07:33 07/03/17 07:33 07/03/17 07:33 07/03/17 07:33 07/03/17 07:33 Oxygen Delivery Method Room Air Weight: 139 kg Body Mass Index (BMI) 43.9 Orthostatic Vital Signs Start: 07/02/17 18:41 Freq: q24h Status: Active Protocol: Activity Type Activity Date Activity User E-Sign Co-Sign Detail Recorded Client Recorded Date Recorded By Document 07/03/17 05:17 [facility] [id number] 07/03/17 05:28 [facility] [place] 07/03/17 05:17 Orthostatic Vitals Standing -Blood Pressure (90/60-120/80) 144/89 H -Extremity Use Right Arm -Pulse Rate (60-100) 86 Sitting -Blood Pressure (90/60-120/80) 140/91 H -Extremity Use Right Arm -Pulse Rate (60-100) 77 Lying -Blood Pressure (90/60-120/80) 129/82 H -Extremity Use Right Arm -Pulse Rate (60-100) 75 Intake and Output for Last 24 Hours 07/01/17 07/02/17 07/03/17 23:59 23:59 23:59 Intake Total 240 / 240 1636 / 1636 0 / 0 Balance 240 / 240 1636 / 1636 0 / 0 Laboratory Tests Past 24 Hrs 07/02/17 07/03/17 07/03/17 06:05 05:30 05:30 WBC 10.2 RBC 4.79 Hgb 14.9 Hct 43.7 MCV 91.2 MCH 31.1 MCHC 34.1 RDW 13.7 RDW Differential 45.0 H Plt Count 343 MPV 9.0 Sodium 142 Potassium 4.6 Chloride 106 Carbon Dioxide 29.0 Anion Gap 7 BUN 15 Creatinine 1.17 Estim Creat Clear Calc 73.66 Est GFR (MDRD) Af Amer 83 Est GFR (MDRD) Non-Af 69 BUN/Creatinine Ratio 12.8 Glucose 88 Hemoglobin A1c 5.8 Calcium 8.4 L POC Glucose 07/02/17 21:59 POC Glucose 107 Current Medications Generic Name Dose Route Start Last Admin Trade Name Freq PRN Reason Stop Dose Admin Acetaminophen 650 mg 07/01/17 16:12 Tylenol PO Q4H PRN PRN Headache/Temp>99F Acetaminophen 650 mg 07/01/17 16:12 Tylenol RECTAL Q4H PRN PRN Headache/Temp>99F Acetaminophen 650 mg 07/01/17 16:12 Tylenol Liquid NG Q4H PRN PRN Headache/Temp>99F Albuterol Sulfate 2.5 mg 07/02/17 15:45 07/03/17 07:01 Ventolin Aerosols INHALATION 2.5 mg Q6HWA.RT HENRIETTA Administration Aspirin 81 mg 07/02/17 08:00 07/02/17 10:28 Aspirin, Baby PO 81 mg DAILY@0800 HENRIETTA Administration Atorvastatin Calcium 80 mg 07/02/17 10:00 07/02/17 10:28 Lipitor PO 80 mg DAILY HENRIETTA Administration Budesonide 0.5 mg 07/02/17 15:45 07/03/17 07:01 Pulmicort Aerosol INHALATION 0.5 mg Q12H.RT HENRIETTA Administration Enoxaparin Sodium 40 mg 07/02/17 06:00 07/03/17 05:16 Lovenox SC 40 mg DAILY@0600 HENRIETTA Administration Hydrochlorothiazide 25 mg 07/03/17 10:00 Hctz PO DAILY [facility] Metformin HCl 500 mg 07/03/17 12:00 Glucophage PO DAILYCM HENRIETTA Sodium Chloride 5 - 30 ml 07/02/17 10:55 IV UD PRN SALINE FLUSH Medical Necessity - Tobacco Use Smoking Status: Former smoker Tobacco Use: Cigarettes Assessment/Plan Acute small infarcts presumably cardioembolic based on vascular distribution. 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
--- NOTE | 2017-07-03 11:20 | PN.NEURO_ITS ---
- Physical Exam General: Alert, Oriented x3, Cooperative HEENT: Atraumatic, PERRLA, EOMI, Normocephalic Neck: Supple, No JVD, Negative Carotid Bruits Lungs: Clear to auscultation, Normal air movement Cardiovascular: Regular rate, No murmurs Abdomen: Bowel Sounds Present, Soft, Non Tender Extremities: No edema, Capillary Refill Less than 3 Seconds Skin: No rashes, No breakdown Musculoskeletal: No Tenderness to Palpation of Joints or Extremities Neurological: Cranial nerves II-XII grossly intact Psych/Mental Status: Normal Affect, Appropriate Vital Signs Temp Pulse Resp BP Pulse Ox 36.6 C 78 16 112/68 95 07/03/17 07:33 07/03/17 07:33 07/03/17 07:33 07/03/17 07:33 07/03/17 07:33 Oxygen Delivery Method Room Air Weight: 139 kg Body Mass Index (BMI) 43.9 Orthostatic Vital Signs Start: 07/02/17 18:41 Freq: q24h Status: Active Protocol: Activity Type Activity Date Activity User E-Sign Co-Sign Detail Recorded Client Recorded Date Recorded By Document 07/03/17 05:17 [facility] [place] [id number] 07/03/17 05:28 [facility] [place] 07/03/17 05:17 Orthostatic Vitals Standing -Blood Pressure (90/60-120/80) 144/89 H -Extremity Use Right Arm -Pulse Rate (60-100) 86 Sitting -Blood Pressure (90/60-120/80) 140/91 H -Extremity Use Right Arm -Pulse Rate (60-100) 77 Lying -Blood Pressure (90/60-120/80) 129/82 H -Extremity Use Right Arm -Pulse Rate (60-100) 75 Intake and Output for Last 24 Hours 07/01/17 07/02/17 07/03/17 23:59 23:59 23:59 Intake Total 240 / 240 1636 / 1636 0 / 0 Balance 240 / 240 1636 / 1636 0 / 0 Laboratory Tests Past 24 Hrs 07/02/17 07/03/17 07/03/17 06:05 05:30 05:30 WBC 10.2 RBC 4.79 Hgb 14.9 Hct 43.7 MCV 91.2 MCH 31.1 MCHC 34.1 RDW 13.7 RDW Differential 45.0 H Plt Count 343 MPV 9.0 Sodium 142 Potassium 4.6 Chloride 106 Carbon Dioxide 29.0 Anion Gap 7 BUN 15 Creatinine 1.17 Estim Creat Clear Calc 73.66 Est GFR (MDRD) Af Amer 83 Est GFR (MDRD) Non-Af 69 BUN/Creatinine Ratio 12.8 Glucose 88 Hemoglobin A1c 5.8 Calcium 8.4 L POC Glucose 07/02/17 21:59 POC Glucose 107 Current Medications Generic Name Dose Route Start Last Admin Trade Name Freq PRN Reason Stop Dose Admin Acetaminophen 650 mg 07/01/17 16:12 Tylenol PO Q4H PRN PRN Headache/Temp>99F Acetaminophen 650 mg 07/01/17 16:12 Tylenol RECTAL Q4H PRN PRN Headache/Temp>99F Acetaminophen 650 mg 07/01/17 16:12 Tylenol Liquid NG Q4H PRN PRN Headache/Temp>99F Albuterol Sulfate 2.5 mg 07/02/17 15:45 07/03/17 07:01 Ventolin Aerosols INHALATION 2.5 mg Q6HWA.RT HENRIETTA Administration Aspirin 81 mg 07/02/17 08:00 07/02/17 10:28 Aspirin, Baby PO 81 mg DAILY@0800 HENRIETTA Administration Atorvastatin Calcium 80 mg 07/02/17 10:00 07/02/17 10:28 Lipitor PO 80 mg DAILY HENRIETTA Administration Budesonide 0.5 mg 07/02/17 15:45 07/03/17 07:01 Pulmicort Aerosol INHALATION 0.5 mg Q12H.RT HENRIETTA Administration Enoxaparin Sodium 40 mg 07/02/17 06:00 07/03/17 05:16 Lovenox SC 40 mg DAILY@0600 HENRIETTA Administration Hydrochlorothiazide 25 mg 07/03/17 10:00 Hctz PO DAILY [facility] Metformin HCl 500 mg 07/03/17 12:00 Glucophage PO DAILYCM HENRIETTA Sodium Chloride 5 - 30 ml 07/02/17 10:55 IV UD PRN SALINE FLUSH Medical Necessity - Tobacco Use Smoking Status: Former smoker Tobacco Use: Cigarettes Assessment/Plan Acute small infarcts presumably cardioembolic based on vascular distribution. 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
[2017-07-03] MEDS: hydroCHLOROthiazide 25 MG Tablet PO (11:50)
[2017-07-03] MEDS: Atorvastatin Calcium 80 MG Tablet PO (11:50)
[2017-07-03] MEDS: Aspirin 81 MG TAB.CHEW PO (11:50)
--- NOTE | 2017-07-03 15:12 | PCM.DC ---
- Discharge Diagnoses Current Active Problems: Current Active and Chronic Problems Asthma (Chronic) Essential hypertension (Chronic) You will use the following diet at home:: Calorie/Carbohydrate Controlled (specify 1200, 1400, etc) - 1800 frederic / day, Cardiac - 2 g sodium, Your food should be the consistency of: Regular Your liquids should be the consistency of: Regular/Thin Discharge Activity: Return to Normal Activity Allergies/Adverse Reactions: Allergies Iodinated Contrast- Oral and IV Dye [CONTRASTS] Adverse Reaction (Verified 07/01/17 15:53) Other Medications to take at Discharge Hydrochlorothiazide [Hctz] 25 mg PO DAILY 07/01/17 Mometasone/Formoterol [Dulera 200 Mcg/5 Mcg Inhaler] 13 gm IH DAILY 07/01/17 Aspirin [Aspirin, Baby] 81 mg PO DAILY@0800 tab.chew 07/03/17 Atorvastatin Calcium [Lipitor] 80 mg PO DAILY #30 tab 07/03/17 Metformin HCl [Glucophage] 500 mg PO DAILYCM #30 tab 07/03/17 The following prescriptions were given: Atorvastatin Calcium [Lipitor] 80 mg PO DAILY #30 tab Metformin HCl [Glucophage] 500 mg PO DAILYCM #30 tab Orders to be completed after discharge: 30-Day Event Recorder [[facility]] Location: None Selected Primary Care Physician: Care Physician,No Primary [Primary Care Provider] - Please follow up with your Primary Care Physician in: 1-2 weeks Please Follow Up With: Jose Agustin MD When: 2 weeks Proposed Discharge Date: 07/03/17
--- NOTE | 2017-07-03 15:14 | PCM.DC.SUM ---
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 Syncope 2/2 above Small PFO HTN Asthma Pre-Diabetes type 2 Morbid Obesity Hx of Tobacco abuse Metabolic syndrome as characterized by obesity, htn, low HDL, prediabetes - Secondary Discharge Diagnosis Chronic Problems Asthma (Chronic) Essential hypertension (Chronic) Hospital Course and Treatment Agustin - neuro Operations: None Procedures: 2-D Echocardiogram, Transesophageal Echo Summary of Care Provided: Physical exam on day of discharge: General: Resting comfortably NAD Psych: A/Ox3 normal affect HEENT: PEARRLA AT NC Neck: Supple NT CV: RRR no m/t/r/g/h Resp: CTA Abd: [id number] Soft NT no guarding or rigidity Ext: DP2+= no edema Skin: W/D normal turgor Lymph/Heme: No active bleeding or adenopathy Neuro: CN2-12 intact Hospital course: The patient is a 57 year old M who presented to the ER with a chief complaint of syncope, RUE numbness, and slurred speech. He had fallen and injured his right ankle as well, and reported to [facility]. He had a XR of his R ankle which was negative. He was transferred to [facility] after a negative CT of the brain. He had a neuro consult and underwent MRI of the brain which revealed acute L MCA and L AIRPLANE PILOT strokes. He was started on aspirin and statin. LDL was 96. A1C was 5.8, prediabetes, and with underlying metabolic syndrome, morbid obesity and acute stroke this needs aggressively treated, so he was started on metformin and advised on diabetic diet. He was had a ANNIKA which showed no clots, but did show a small patent PFO. He had LUE and RLE swelling so venous duplex ultrasounds were obtained, which did not show DVTs. No events occurred on the monitor while here. As the stroke was presumed to be cardioembolic in origin he was advised to have an event recorder. Dr. Irby agreed to this and he will need to call to set this up as an outpatient. Order was placed. A sleep study was also recommended per neuro and this was arranged for tonight after discharge. He remained in stable condition with no further PTOTST needs and was discharged home. He will need to follow up with his PCP and with neuro in 1-2 weeks. This patient was seen by Eugene Vazquez PA-C under the supervision of Doctor Oscar. [] Discharge Diet: Low fat/ Low Cholesterol, 1800 Calorie Control Diet, 2000 mg Sodium Diet Discharge Activity: Return to Normal Activity Home Medications: Medications to take at Discharge Hydrochlorothiazide [Hctz] 25 mg PO DAILY 07/01/17 Mometasone/Formoterol [Dulera 200 Mcg/5 Mcg Inhaler] 13 gm IH DAILY 07/01/17 Aspirin [Aspirin, Baby] 81 mg PO DAILY@0800 tab.chew 07/03/17 Atorvastatin Calcium [Lipitor] 80 mg PO DAILY #30 tab 07/03/17 Metformin HCl [Glucophage] 500 mg PO DAILYCM #30 tab 07/03/17 Following Prescrptions Were Given to Patient: Atorvastatin Calcium [Lipitor] 80 mg PO DAILY #30 tab Metformin HCl [Glucophage] 500 mg PO DAILYCM #30 tab Other Amb Orders: 30-Day Event Recorder [[facility]] Location: None Selected Primary Care Physician: Care Physician,No Primary [Primary Care Provider] - Please follow up with your Primary Care Physician in: 1-2 weeks Please Follow Up With: Jose Agustin MD When: 2 weeks Additional Instructions: Sleep study tonight. Call tomorrow to arrange for 30 day cardiac event monitor with Dr. Irby. Disposition: Home Minutes spent on discharge:: 45 Patient Condition:: Stable Medical Necessity - Tobacco Use Smoking Status: Former smoker Tobacco Use: Cigarettes Meaningful Use Info Meaningful Use Diagnoses (Choose all that apply): Ischemic CVA - CVA Therapy Assessed for PT,OT and/or ST?: Yes - Ischemic Stroke Antithrombotic order at d/c?: Yes Dx of Atrial fib/flutter?: No Anticoagulant at discharge?: No Reason anticoagulant not ordered: Procedure not Indicated Statins at discharge?: Yes Primary Dx Acute Ischemic CVA?: Yes IV tPA ordered during stay?: No Reason IV t-PA not ordered: Procedure not Indicated <Rey Moore E - Last Filed: 07/04/17 12:04> Discharge Date and Diagnosis - Secondary Discharge Diagnosis Chronic Problems Asthma (Chronic) Essential hypertension (Chronic) Hospital Course and Treatment Imaging Results: Clinical Impression(s) from Imaging Studies Brain MRI 07/01/17 16:12 IMPRESSION: Tiny foci of acute infarction in the left posterior parietal and left high convexity cortex. No evidence of associated hemorrhage or mass effect. Underlying chronic ischemic microvascular white matter changes are minimal. Paranasal sinus disease. at 2013 Reported and signed by: Helen Kendall MD N.B. : The above information has been verbally conveyed by Helen Kendall MD to [place] AGUSTINNAILA on 07/01/2017 20:20:40 (ET). Electronically Signed: Helen Kendall MD at 20:12 EDT Tel , Service support , N.B. : The above information has been verbally conveyed by Helen Kendall MD to BEVERLY EL on 07/01/2017 20:20:40 (ET). Summary of Care Provided: Hospitalist note: Discharge summary above reviewed as well as physical examination and I agree with above discharge plan. Patient was admitted for right upper extremity numbness and slurred speech as well as syncope, found to have acute small infarcts in the left MCA distribution and left AIRPLANE PILOT distribution which presumed to be due to cardioembolic stroke. He was treated with aspirin and statins. His blood pressure was under control. 2D echocardiogram revealed normal ejection fraction and negative bubble contrast study for [id number] shunt. Patient underwent ANNIKA that revealed small PFO. Neurology consulted and recommended a 30 day event monitor and to continue aspirin and statins. Carotid Doppler revealed less than 50% stenosis bilaterally. Patient discharged home in a stable medical condition, discharged on aspirin, statins, continued on HCTZ and metformin, plan to have 30 day event monitor inserted as outpatient and Dr. Irby will follow, outpatient sleep study was scheduled on the right of the discharge day, follow-up with PCP in 1 week and follow-up with neurology in [address] Moore. Minutes spent on discharge:: 34 Meaningful Use Info Meaningful Use Diagnoses (Choose all that apply): Ischemic CVA - CVA Therapy Assessed for PT,OT and/or ST?: Yes - Ischemic Stroke Antithrombotic order at d/c?: Yes Dx of Atrial fib/flutter?: No Anticoagulant at discharge?: No Reason anticoagulant not ordered: Treatment not Indicated Statins at discharge?: Yes Primary Dx Acute Ischemic CVA?: Yes IV tPA ordered during stay?: No Reason IV t-PA not ordered: Treatment not Indicated
--- NOTE | 2017-07-03 15:24 | DS.PCM_ITS ---
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 Syncope 2/2 above Small PFO HTN Asthma Pre-Diabetes type 2 Morbid Obesity Hx of Tobacco abuse Metabolic syndrome as characterized by obesity, htn, low HDL, prediabetes - Secondary Discharge Diagnosis Chronic Problems Asthma (Chronic) Essential hypertension (Chronic) Hospital Course and Treatment Agustin - neuro Operations: None Procedures: 2-D Echocardiogram, Transesophageal Echo Summary of Care Provided: Physical exam on day of discharge: General: Resting comfortably NAD Psych: A/Ox3 normal affect HEENT: PEARRLA AT NC Neck: Supple NT CV: RRR no m/t/r/g/h Resp: CTA Abd: [id number] Soft NT no guarding or rigidity Ext: DP2+= no edema Skin: W/D normal turgor Lymph/Heme: No active bleeding or adenopathy Neuro: CN2-12 intact Hospital course: The patient is a 57 year old M who presented to the ER with a chief complaint of syncope, RUE numbness, and slurred speech. He had fallen and injured his right ankle as well, and reported to [place] [facility]. He had a XR of his R ankle which was negative. He was transferred to [facility] after a negative CT of the brain. 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 He was started on aspirin and statin. LDL was 96. A1C was 5.8, prediabetes, and with underlying metabolic syndrome, morbid obesity and acute stroke this needs aggressively treated, so he was started on metformin and advised on diabetic diet. He was had a ANNIKA which showed no clots, but did show a small patent PFO. He had LUE and RLE swelling so venous duplex ultrasounds were obtained, which did not show DVTs. No events occurred on the monitor while here. As the stroke was presumed to be cardioembolic in origin he was advised to have an event recorder. Dr. Irby agreed to this and he will need to call to set this up as an outpatient. Order was placed. A sleep study was also recommended per neuro and this was arranged for tonight after discharge. He remained in stable condition with no further PTOTST needs and was discharged home. He will need to follow up with his PCP and with neuro in 1-2 weeks. This patient was seen by Eugene Vazquez PA-C under the supervision of Doctor Oscar. [] Discharge Diet: Low fat/ Low Cholesterol, 1800 Calorie Control Diet, 2000 mg Sodium Diet Discharge Activity: Return to Normal Activity Home Medications: Medications to take at Discharge Hydrochlorothiazide [Hctz] 25 mg PO DAILY 07/01/17 Mometasone/Formoterol [Dulera 200 Mcg/5 Mcg Inhaler] 13 gm IH DAILY 07/01/17 Aspirin [Aspirin, Baby] 81 mg PO DAILY@0800 tab.chew 07/03/17 Atorvastatin Calcium [Lipitor] 80 mg PO DAILY #30 tab 07/03/17 Metformin HCl [Glucophage] 500 mg PO DAILYCM #30 tab 07/03/17 Following Prescrptions Were Given to Patient: Atorvastatin Calcium [Lipitor] 80 mg PO DAILY #30 tab Metformin HCl [Glucophage] 500 mg PO DAILYCM #30 tab Other Amb Orders: 30-Day Event Recorder [[facility]] Location: None Selected Primary Care Physician: Care Physician,No Primary [Primary Care Provider] - Please follow up with your Primary Care Physician in: 1-2 weeks Please Follow Up With: Jose Agustin MD When: 2 weeks Additional Instructions: Sleep study tonight. Call tomorrow to arrange for 30 day cardiac event monitor with Dr. Irby. Disposition: Home Minutes spent on discharge:: 45 Patient Condition:: Stable Medical Necessity - Tobacco Use Smoking Status: Former smoker Tobacco Use: Cigarettes Meaningful Use Info Meaningful Use Diagnoses (Choose all that apply): Ischemic CVA - CVA Therapy Assessed for PT,OT and/or ST?: Yes - Ischemic Stroke Antithrombotic order at d/c?: Yes Dx of Atrial fib/flutter?: No Anticoagulant at discharge?: No Reason anticoagulant not ordered: Procedure not Indicated Statins at discharge?: Yes Primary Dx Acute Ischemic CVA?: Yes IV tPA ordered during stay?: No Reason IV t-PA not ordered: Procedure not Indicated <Rey Moore E - Last Filed: 07/04/17 12:04> Discharge Date and Diagnosis - Secondary Discharge Diagnosis Chronic Problems Asthma (Chronic) Essential hypertension (Chronic) Hospital Course and Treatment Imaging Results: Clinical Impression(s) from Imaging Studies Brain MRI 07/01/17 16:12 IMPRESSION: Tiny foci of acute infarction in the left posterior parietal and left high convexity cortex. No evidence of associated hemorrhage or mass effect. Underlying chronic ischemic microvascular white matter changes are minimal. Paranasal sinus disease. at 2013 Reported and signed by: Helen Kendall MD N.B. : The above information has been verbally conveyed by Helen Kendall MD to [place] AGUSTINNAILA on 07/01/2017 20:20:40 (ET). Electronically Signed: Helen Kendall MD at 20:12 EDT Tel , Service support , N.B. : The above information has been verbally conveyed by Helen Kendall MD to BEVERLY EL on 07/01/2017 20:20:40 (ET). Summary of Care Provided: Hospitalist note: Discharge summary above reviewed as well as physical examination and I agree with above discharge plan. Patient was admitted for right upper extremity numbness and slurred speech as well as syncope, found to have acute small infarcts in the left MCA distribution and left AIR[employer] WORKER distribution which presumed to be due to cardioembolic stroke. He was treated with aspirin and statins. His blood pressure was under control. 2D echocardiogram revealed normal ejection fraction and negative bubble contrast study for [id number] shunt. Patient underwent ANNIKA that revealed small PFO. Neurology consulted and recommended a 30 day event monitor and to continue aspirin and statins. Carotid Doppler revealed less than 50% stenosis bilaterally. Patient discharged home in a stable medical condition, discharged on aspirin, statins, continued on HCTZ and metformin, plan to have 30 day event monitor inserted as outpatient and Dr. Irby will follow, outpatient sleep study was scheduled on the right of the discharge day, follow-up with PCP in 1 week and follow-up with neurology in [address] Moore. Minutes spent on discharge:: 34 Meaningful Use Info Meaningful Use Diagnoses (Choose all that apply): Ischemic CVA - CVA Therapy Assessed for PT,OT and/or ST?: Yes - Ischemic Stroke Antithrombotic order at d/c?: Yes Dx of Atrial fib/flutter?: No Anticoagulant at discharge?: No Reason anticoagulant not ordered: Treatment not Indicated Statins at discharge?: Yes Primary Dx Acute Ischemic CVA?: Yes IV tPA ordered during stay?: No Reason IV t-PA not ordered: Treatment not Indicated
== END 2017-07-03 20:00 | disposition home or self-care (01) | DRG 65 ==
PROVIDERS: Nurse Practitioner Family; Admitting Provider Internal Medicine; Visit Provider Hospitalist
DX: I63.412 Cerebral infarction due to embolism of left middle cerebral artery (principal); Q21.1 Atrial septal defect; Z68.41 Body mass index [BMI] 40.0-44.9, adult; I10 Essential (primary) hypertension; J45.909 Unspecified asthma, uncomplicated; R73.03 Prediabetes; E66.01 Morbid (severe) obesity due to excess calories; Z71.3 Dietary counseling and surveillance; E88.81 Metabolic syndrome and other insulin resistance; S99.911A Unspecified injury of right ankle, initial encounter; W19.XXXA Unspecified fall, initial encounter; I63.432 Cerebral infarction due to embolism of left posterior cerebral artery; Z87.891 Personal history of nicotine dependence
CPT/HCPCS: 36415; 70551; 80048; 80061; 82962; 83036; 84443; 84484; 85027; 92507; 93306; 93312; 93320; 93325; 93880; 93971; 94640; 97161; 97165; J7040; Q9957; A4216; C8929; J2310

== ENCOUNTER → 2017-07-03 20:31 | Outpatient (CLI) | payer MEDICAID, SELFPAY | PROVIDERS: Visit Provider Psychiatry & Neurology Neurology | DX: G47.33 Obstructive sleep apnea (adult) (pediatric) (principal) | CPT/HCPCS: 95810 ==